=== PATIENT | male | born 1945 | race Caucasian/White ===

== ENCOUNTER 2016-10-25 12:20 | Emergency (ER) | payer MEDICARE ==
[~2016-10-25 12:20] MED LIST: ASPIR 8181 MG PO; GUAIFENESIN-DM10 ML PO; LANTUS100 UNIT/1 INJ; LEVAQUIN500 MG PO; LIPITOR40 MG PO; METOPROLOL TART25 MG PO; PRINIVIL10 MG PO; TYLENOL325 MG PO
== END 2016-10-25 12:40 | disposition short-term general hospital (02) ==
LOC: ER 12:20
DX: I21.19 ST elevation (STEMI) myocardial infarction involving other coronary artery of inferior wall (principal); R53.1 Weakness; I10 Essential (primary) hypertension; E11.9 Type 2 diabetes mellitus without complications; E78.5 Hyperlipidemia, unspecified; Z79.4 Long term (current) use of insulin; Z87.442 Personal history of urinary calculi
CPT/HCPCS: 36415